=== PATIENT | male | born 1980 | race African-American/Black ===

== ENCOUNTER 2019-05-27 14:45 | Emergency (ER) | payer MEDICAID, OTHER ==
[~2019-05-27] VITALS: Ht 167.6 cm; Wt 137.9 kg
[2019-05-27 14:59] VITALS: BP 143/91
== END 2019-05-27 16:05 | disposition home or self-care (01) ==
LOC: ER 14:45
DX: S83.92XA Sprain of unspecified site of left knee, initial encounter (principal); W19.XXXA Unspecified fall, initial encounter; Y93.01 Activity, walking, marching and hiking; Y92.89 Other specified places as the place of occurrence of the external cause; Y99.8 Other external cause status
CPT/HCPCS: 73562

== ENCOUNTER 2022-07-25 16:50 | Emergency (ER) | payer MEDICAID ==
[~2022-07-25] VITALS: Ht 167.6 cm; Wt 152.3 kg
[2022-07-25] MEDS ORDERED: cloNIDine HCL 0.1 MG TAB PO ONE (17:45)
[2022-07-25 21:07] VITALS: BP 143/82
[2022-07-25] MEDS ORDERED: LORA-483 GT ×2 (21:18→22:22)
[2022-07-25] MEDS ORDERED: BENZ100C19 PO ×2 (21:18→22:22)
[2022-07-25] MEDS ORDERED: LISI-716 PO ×2 (21:18→22:22)
== END 2022-07-25 22:30 | disposition home or self-care (01) ==
LOC: ER 16:53
DX: J06.9 Acute upper respiratory infection, unspecified (principal); R94.31 Abnormal electrocardiogram [ECG] [EKG]; Z20.822 Contact with and (suspected) exposure to COVID-19
CPT/HCPCS: 36415; 71046; 87426; 87804; 93005

== ENCOUNTER 2023-07-22 19:07 | Emergency (ER) | payer MEDICAID ==
[~2023-07-22] VITALS: Ht 167.6 cm; Wt 154.5 kg
[~2023-07-22 19:07] MED LIST: BENZ100C19 PO; LISI10TA34 PO; LORA-483 GT
[2023-07-22 19:40] VITALS: BP 166/106; PULSE 105; RESP 18; O2SAT 94
[2023-07-22] MEDS ORDERED: ACETAMINOPHEN 325 MG TAB PO ONE (19:45)
[2023-07-22] MEDS ORDERED: IBUPROFEN 800 MG TAB PO ONE (22:30)
[2023-07-22] MEDS ORDERED: IBUP-1456 PO (22:37)
[2023-07-22 22:38] VITALS: TEMP 100.3
== END 2023-07-22 22:36 | disposition home or self-care (01) ==
LOC: ER 19:07
DX: B34.9 Viral infection, unspecified (principal)